=== PATIENT | male | born 2000 | race African-American/Black ===

== ENCOUNTER 2020-01-05 23:51 | Emergency (ER) | payer OTHER, MEDICAID ==
[2020-01-06] MEDS ORDERED: ISOVUE-370 76% 100ML VIAL ONE (03:42)
[2020-02-12 17:08] LABS: BASO % 0.3 % (0.0-1.0); EOS % 0.1 % (0.0-3.0); HEMATOCRIT 47.6 % (42.0-52.0); HEMOGLOBIN 16.5 g/dl (13.5-17.5); LYMPH % 14.5 % (24.0-44.0); MEAN CORPUSCULAR HEMOGLOBIN 26.1 pg (27.0-33.0); MEAN CORPUSCULAR HGB CONC 34.7 g/dl (32.0-36.5); MEAN CORPUSCULAR VOLUME 75.4 fl (80.0-96.0); MONO # 0.5 10^3/uL (0.0-0.8); MONO % 7.3 % (0.0-5.0); NEUTROPHILS # 5.2 10^3/uL (1.5-8.5); NEUTROPHILS % 77.7 % (36.0-66.0); PLATELET COUNT, AUTOMATED 250 10^3/uL (150-450); RED BLOOD COUNT 6.31 10^6/uL (4.30-6.10); WHITE BLOOD COUNT 6.7 10^3/uL (4.0-10.0)
--- NOTE | 2020-02-22 16:12 | ECGEPIP ---
SINUS RHYTHM WITH SINUS ARRHYTHMIA NONSPECIFIC T-WAVE ABNORMALITY BORDERLINE ECG NO OLD AVAILABLE SEE SCANNED DOWNTIME REPORT MTDD
[2020-03-17 10:42] LABS: ALBUMIN 4.8 GM/DL (3.2-5.2); ALT/SGPT 24 U/L (12-78); BILIRUBIN,DIRECT 0.3 MG/DL (0.0-0.2); BILIRUBIN,TOTAL 0.7 MG/DL (0.2-1.0); BLOOD UREA NITROGEN 14 MG/DL (7-18); CALCIUM LEVEL 9.9 MG/DL (8.5-10.1); CARBON DIOXIDE LEVEL 25 MEQ/L (21-32); CHLORIDE LEVEL 103 MEQ/L (98-107); CK-MB VALUE MASS < 1.0 NG/ML (<3.6); CPK CREATINE PHOSPHOKINASE 161 U/L (39-308); CREATININE FOR GFR 0.82 MG/DL (0.70-1.30); GLUCOSE, FASTING 100 MG/DL (70-100); LIPASE 46 U/L (73-393); MB/CK RELATIVE INDEX 0.62 (< OR =4); SODIUM LEVEL 139 MEQ/L (136-145); TOTAL PROTEIN 8.7 GM/DL (6.4-8.2); TROPONIN I < 0.02 NG/ML (< 0.10)
== END 2020-01-06 07:15 | disposition home or self-care (01) ==
LOC: M ED 23:51
DX: B34.9 Viral infection, unspecified (principal); R19.7 Diarrhea, unspecified
CPT/HCPCS: 71046; 74177; 80048; 80076; 82550; 82553; 83690; 84484; 85025; 87486; 87581; 87633; 87798; 93005; 99284; Q9967

== ENCOUNTER → 2020-09-27 | Outpatient (CLI) | payer OTHER, MEDICAID ==
--- NOTE | 2020-09-27 14:01 | REPPI ---
INDICATION: R10.9 UNSPECIFIED ABDOMINAL PAIN COMPARISON: None. TECHNIQUE: Supine view of the abdomen and pelvis. FINDINGS: Bowel gas pattern is nonspecific and without obstruction or perforation. No organomegaly. No abnormal calcifications. Skeletal structures intact. IMPRESSION: Normal abdominal radiograph. <Electronically signed by Mayo Montague > 09/27/20 1426
== END ==
LOC: M PLAIMG 13:22
PROVIDERS: ATTEND Pediatrics
DX: R10.9 Unspecified abdominal pain (principal)

== ENCOUNTER → 2020-10-10 | Outpatient (REF) | payer OTHER, MEDICAID | LOC: M LAB REF 16:47 | PROVIDERS: ATTEND Pediatrics | DX: Z11.3 Encounter for screening for infections with a predominantly sexual mode of transmission (principal) ==

== ENCOUNTER → 2020-12-20 | Outpatient (CLI) | payer OTHER ==
--- NOTE | 2020-12-21 20:50 | REPVR ---
PROCEDURE INFORMATION: Exam: MR Lumbar Spine Without Contrast Exam date and time: 12/20/2020 8:39 AM Age: 20 years old Clinical indication: Low back pain; Additional info: Strain of muscle, R/O hnp TECHNIQUE: Imaging protocol: Multiplanar magnetic resonance images of the lumbar spine without intravenous contrast. COMPARISON: CR ABDOMEN 1 VIEW (KUB) 09/27/2020 1:45 PM FINDINGS: Vertebral body heights are maintained. No abnormal marrow signal. No cord compression. No abnormal cord signal. Conus medullaris terminates at the T12-L1 level. Disc space heights are normal. No significant areas of canal or foraminal narrowing. Paravertebral soft tissues are unremarkable. IMPRESSION: No acute findings in the lumbar spine. Electronically signed by: Malik Clarke On 12/21/2020 20:50:04 PM
== END ==
LOC: M PLAIMG 07:31
PROVIDERS: ATTEND Physician Assistant Surgical
DX: S39.012A Strain of muscle, fascia and tendon of lower back, initial encounter (principal); X58.XXXA Exposure to other specified factors, initial encounter; Y92.89 Other specified places as the place of occurrence of the external cause; Y93.89 Activity, other specified; Y99.8 Other external cause status

== ENCOUNTER → 2021-09-17 | Outpatient (CLI) | payer MEDICAID, OTHER | LOC: M RAD 16:27 | PROVIDERS: ATTEND Specialist | DX: J20.9 Acute bronchitis, unspecified (principal) ==

== ENCOUNTER → 2021-09-17 | Outpatient (REF) | payer MEDICAID, OTHER | LOC: M LAB REF 16:45 | PROVIDERS: ATTEND Specialist | DX: J20.9 Acute bronchitis, unspecified (principal) ==

== ENCOUNTER 2022-09-12 01:00 | Emergency (ER) | payer OTHER ==
[~2022-09-12] VITALS: Ht 170.2 cm; Wt 75.0 kg
[2022-09-12] MEDS ORDERED: methylPREDNISolone 125MG 2ML VIAL IV ONE (01:35)
[2022-09-12] MEDS ORDERED: diazePAM 10MG/2ML SYRINGE IM ONE (01:35)
[2022-09-12 02:45] VITALS: BP 132/72
[2022-09-12] MEDS ORDERED: MEDR4PAK PO (03:09)
[2022-09-12] MEDS ORDERED: CYCL7.5T32 PO (03:09)
== END 2022-09-12 03:59 | disposition home or self-care (01) ==
LOC: M ED 01:00
DX: M54.12 Radiculopathy, cervical region (principal)
CPT/HCPCS: 72125; 73030; 73110; 96372; 96374; 99284; J2930; J3360

== ENCOUNTER → 2023-12-09 | Outpatient (CLI) | payer OTHER ==
[~2023-12-09] MED LIST: CYCL7.5T32 PO; MEDR4PAK PO
== END ==
LOC: M RAD 15:47
PROVIDERS: ATTEND Physician Assistant
DX: S16.1XXD Strain of muscle, fascia and tendon at neck level, subsequent encounter (principal); M50.30 Other cervical disc degeneration, unspecified cervical region; Y93.9 Activity, unspecified; Y92.9 Unspecified place or not applicable

== ENCOUNTER 2024-09-21 12:09 | Emergency (ER) | payer OTHER ==
[~2024-09-21] VITALS: Ht 172.7 cm; Wt 74.1 kg
[2024-09-21 15:03] VITALS: BP 127/78; TEMP 97.5; O2SAT 100
== END 2024-09-21 15:06 | disposition home or self-care (01) ==
LOC: M ED 12:09
DX: M54.12 Radiculopathy, cervical region (principal); F41.9 Anxiety disorder, unspecified; F32.A Depression, unspecified